=== PATIENT | male | born 1965 | race Hispanic/Latino ===

== ENCOUNTER 2018-01-24 10:09 | Emergency (ER) | payer SELFPAY ==
[~2018-01-24] VITALS: Ht 172.7 cm; Wt 70.0 kg
[~2018-01-24 10:09] MED LIST: MOTRIN800 MG PO
[2018-01-24 10:47] VITALS: BP 120/74
== END 2018-01-24 10:47 | disposition home or self-care (01) | DRG 125 ==
LOC: ED 10:09
PROC: 0HQ1XZZ Repair Face Skin, External Approach (ICD-10-PCS; principal; 2018-01-24)
DX: S01.112A Laceration without foreign body of left eyelid and periocular area, initial encounter (principal); W22.8XXA Striking against or struck by other objects, initial encounter; Y93.89 Activity, other specified; Y92.63 Factory as the place of occurrence of the external cause; Y99.0 Civilian activity done for income or pay

== ENCOUNTER 2018-01-30 10:42 | Emergency (ER) | payer SELFPAY ==
[~2018-01-30] VITALS: Ht 172.7 cm; Wt 75.0 kg
[2018-01-30 11:00] VITALS: BP 120/74
== END 2018-01-30 11:05 | disposition home or self-care (01) | DRG 950 ==
LOC: ED 10:42
DX: S01.112D Laceration without foreign body of left eyelid and periocular area, subsequent encounter (principal)

== ENCOUNTER 2022-01-24 12:23 | Emergency (ER) | payer SELFPAY ==
[~2022-01-24] VITALS: Ht 172.7 cm; Wt 81.0 kg
[2022-01-24 12:30] VITALS: BP 140/79
[2022-01-24 13:00] VITALS: BP 121/75
[2022-01-24 13:31] VITALS: BP 107/81
[2022-01-24 14:00] VITALS: BP 132/75
[2022-01-24] MEDS ORDERED: NAPROXEN500 MG PO (14:03)
[2022-01-24 14:29] VITALS: BP 132/75
== END 2022-01-24 14:29 | disposition home or self-care (01) | DRG 605 ==
LOC: ED 12:23
PROC: 0HQFXZZ Repair Right Hand Skin, External Approach (ICD-10-PCS; principal; 2022-01-24)
DX: S61.011A Laceration without foreign body of right thumb without damage to nail, initial encounter (principal); S63.601A Unspecified sprain of right thumb, initial encounter; W20.8XXA Other cause of strike by thrown, projected or falling object, initial encounter; Y93.89 Activity, other specified; Y92.89 Other specified places as the place of occurrence of the external cause; Y99.0 Civilian activity done for income or pay